=== PATIENT | male | born 1990 | race Caucasian/White ===

== ENCOUNTER 2020-03-17 11:58 | Emergency (ER) | payer MEDICAID, SELFPAY ==
--- NOTE | 2020-03-17 12:00 | RAD_ITS ---
STUDY: X-RAY CHEST REASON FOR EXAM: Male, 29 years old. ETT PLACEMENT TECHNIQUE: Single AP portable view of the chest. COMPARISON: None. FINDINGS: The tip of the endotracheal tube is at the level of the neva. It should be pulled back 2.5 cm. EKG electrodes are seen. The lungs are clear and expanded. There is no demonstrated pleural abnormality. Normal size heart. Normal mediastinum and lilliana. Normal visualized pulmonary arteries. Normal visualized aortic arch and descending thoracic aorta. Normal visualized thoracic spine. Normal visualized ribs, clavicles, and shoulders. There is no demonstrated abnormality of the visualized soft tissue structures of the upper abdomen. RAD/Chest 1 View (Portable) IMPRESSION: The tip of the endotracheal tube is at the level of the neva. It should be pulled back 2.5 cm. Electronically Signed: Rahat Van, at 12:28 EST , Service support ,
--- NOTE | 2020-03-17 12:00 | CPS ---
Patient on transport vent. Tube placement verified by Dr Hill. Tube retaped at 26 with bilateral breath sounds.
[2020-03-17 12:01] VITALS: BP 131/90; PULSE 82; RESP 12; TEMP 36.7; O2SAT 100; BMI 27.3
--- NOTE | 2020-03-17 12:07 | ED.VIS.GEN ---
History of Present Illness Chief Complaint: Other, Pain/Inj Detail of Chief Complaint: airway issue Informant: Patient Narrative: This patient was being transferred from [place] to [facility] ICU due to being intubated after an overdose/polysubstance abuse, and during the transfer, the patient woke up from his sedation, was agitated, the squad gave him 5 mg of Ativan in addition to the propofol drip he was already on to get him sedated, but before it took effect he pulled out his ETT, disconnecting it, and they were concerned that they might have lost the airway so they stopped here for evaluation. Apparently the patient was seen overnight at outside hospital, and very agitated, given medications to sedate him, and then the physician who saw him this morning states that he was obtunded but when they tried to evaluate him further he would be very agitated intermittently, and unable to study further including CT scan which ended up being negative. He has methamphetamine on board in addition to taking a lot of Seroquel. At this time, the patient is obtunded and under the influence of sedatives, limiting history from him. Past Medical History Past Medical History: - - Unknown Smoking Status: Unknown if ever smoked Review of Systems ROS: Unable to Obtain Physical Exam Vital Signs/Narrative: Vital Signs Temp Pulse Resp BP Pulse Ox 03/17/20 12:01 98.1 F 82 12 131/90 H 100 General: Well nourished, Well developed, Unkempt, No Acute Distress, - - Obtunded/sedated Head: Normocephalic, Atraumatic ENT: Moist mucous membranes, No rhinorrhea Neck: Supple, - - No meningismus Cardiovascular: Regular rate, Regular rhythm, No murmurs. Negative for: Tachycardia Respiratory: No distress, CTA bilaterally - With equal breath sounds present bilaterally, trachea midline., Chest nontender, - - ETT present at 27 cm at the teeth, good fogging in the tube with a small amount of thick mucousy secretions and part of it Abdomen: Soft, Nondistended Skin: Normal color, No rash, No Trauma Neurological: - - Obtunded/sedated, all 4 extremities flaccid Diagnostic/Tx/Re-eval Chest X-Ray - ED: 1 View, Read by ED Physician, - - ETT in good placement, tip near neva - Rhythm Strip Rhythm Strip: Sinus Rhythm Rate: 65 Ectopy: None - Medical Decision Making There is good fogging of the tube, equal breath sounds bilaterally, nothing over the epigastrium with the ventilator breathing for him, and chest x-ray shows good ETT placement although it is a little distal. I had respiratory suction his airway tube, pull the ETT back 1 cm, and resecure it. His vital signs remained normal with pulse ox 100%, I discussed with the crnp Dr. Chandler at [facility] to give them an update, I also discussed with the physician at the [facility], I provided EMS with more benzodiazepine doses in case they needed, they have enough propofol and are able to go up on the dose if needed, and they will continue transfer to [facility]. Airway is stable. ED Disposition - Plan for ED Patient: Disposition: [facility] Diagnosis: Endotracheally intubated, Polysubstance abuse
[2020-03-17] MEDS: LORazepam 2 MG/ML Syringe 5 MG IV (12:25)
== END 2020-03-17 12:52 | disposition short-term general hospital (02) ==
LOC: ED 12:30
PROVIDERS: Emergency Provider Emergency Medicine
DX: F19.10 Other psychoactive substance abuse, uncomplicated (principal)
CPT/HCPCS: 31500; 71045; 94770; 96374; 99251; 99285; G0463

== ENCOUNTER 2021-01-21 12:47 | Emergency (ER) | payer MEDICAID, SELFPAY ==
[2021-01-21 12:47] VITALS: BP 136/86; PULSE 123; RESP 18; TEMP 36.2; O2SAT 98; BMI 24.3
[2021-01-21 15:22] VITALS: BP 142/76; PULSE 119; RESP 22; O2SAT 97
--- NOTE | 2021-01-21 15:24 | EX.ED.VISEXT ---
HPI History of Present Illness Chief Complaint: Bite Narrative Narrative: 30-year-old male presenting with right ankle erythema and slight swelling. He states this is been present for 3 days. He states it started over the medial malleolus. He denies any trauma. Patient has concern that he was bitten by a brown recluse spider. He did not see a spider or recall a bite. He was told this by friends. He denies history of systemic systems. Denies history of MRSA or abscess. Patient does state that he is in a hurry because he has to check into long-term. ROS ROS ED Constitutional Constitutional ED: Denies chills or fever(s) Eyes Eyes: Denies blurry vision or change in vision ENT ENT ED: Denies rhinorrhea or sore throat Cardiovascular Cardiovascular: Denies chest pain or palpitations Respiratory/Chest Respiratory/Chest: Denies cough or dyspnea Gastrointestinal Gastrointestinal: Denies abdominal pain, nausea or vomiting Genitourinary Genitourinary ED: Denies dysuria or hematuria Musculoskeletal Musculoskeletal: Denies back pain or neck pain Integumentary Reports rash Neurologic Neurologic: Denies headache(s) or paresthesias PFSH PFSH Medical History Anxiety Depression Hx of drug overdose Home Medications quetiapine 100 mg tablet 100 mg PO tab 06/02/20 [History Last Taken Unknown] risperidone 0.5 mg tablet 0.5 mg PO tab 06/02/20 [History Last Taken Unknown] cephalexin 500 mg PO Q6 #40 capsule 01/21/21 [Rx Last Taken Unknown] Allergy/AdvReac Type Severity Reaction Status Date / Time No Known Allergies Allergy Verified 01/21/21 12:47 Social History Smoking Status: Unknown if ever smoked alcohol intake: current EXAM Physical Exam Const Vital Signs: 01/21/21 12:47 01/21/21 15:22 Temperature 97.2 F L Temperature Source Temporal Pulse Rate 123 H 119 H Respiratory Rate 18 22 H Blood Pressure 136/86 H 142/76 H Blood Pressure Mean 102 98 Pulse Ox 98 97 Oxygen Delivery Method Room Air Room Air Positive well nourished General Appearance ED: NAD HEENT Reports moist mucous membranes normocephalic and atraumatic Cardio regular rhythm Rate: tachycardic Extremity Extremity Narrative: Erythema greater on the medial malleolus of the right foot which spreads laterally over the dorsum of the foot. Slight increased warmth. No drainage or abscess. No pain with short arc range of motion. There does appear to be a superficial abrasion over the medial malleolus. This is likely where it started. It is not consistent with a spider bite necessarily. It does not look like a recluse bite and there is no necrosis. Psych Mood & Affect: anxious Skin Skin Narrative: As described above MDM MDM MDM Narrative Medical decision making narrative: Patient presenting with cellulitis of the right ankle. This does not appear to be abscess. Patient has no pain with trunk range of motion and I have no concern for a joint infection. Patient himself says he is ambulatory. He has not had any systemic signs or symptoms. Patient denies any history of MRSA or abscess. I will start him on Keflex 4 times daily. He is given the first dose in the ER. He is given follow-up with a PCP. Patient states that he is going to check into long-term. He is counseled on wound care and monitoring for signs of worsening infection. Of note the patient is slightly tachycardic however he does feel anxious about going to long-term. He is not having any respiratory or cardiac symptoms. Impression: 1. Right foot cellulitis Discharge Plan Triage Chief Complaint: Bite ED Provider: Jus Melton Dx/Rx/DC Orders Instructions: ED Cellulitis Prescriptions: New cephalexin 500 mg capsule 500 mg PO Q6 Qty: 40 RF: 0 No Action quetiapine 100 mg tablet 100 mg PO RF: 0 risperidone 0.5 mg tablet 0.5 mg PO RF: 0 Primary Care Provider: Care Physician,No Primary Referrals: Araceli Rosales MD [STAFF PHYSICIAN] - 3-5 Days Care Physician,No Primary [Primary Care Provider] - Disposition Disposition: Home, Self Care
[2021-01-21] MEDS: Cephalexin 250 MG Capsule 500 MG PO (15:27)
--- NOTE | 2021-01-21 15:28 | ED.RN ---
PER DR SHAH, HE IS NOT CALLING THE SHELTER, PT CAN GIVE THE SHELTER HIS D/C PAPERS.
== END 2021-01-21 15:35 | disposition home or self-care (01) ==
LOC: ED 15:34
PROVIDERS: Emergency Provider Student in an Organized Health Care Education/Training Program
DX: L03.115 Cellulitis of right lower limb (principal)
CPT/HCPCS: 99283

== ENCOUNTER 2021-09-14 20:10 | Emergency (ER) | payer MEDICAID, SELFPAY ==
[2021-09-14 20:11] VITALS: BP 142/84; PULSE 92; RESP 15; TEMP 36.7; O2SAT 97; BMI 22.8
[2021-09-14 20:12] VITALS: BP 142/84; PULSE 92; RESP 15; TEMP 36.7; O2SAT 97
--- NOTE | 2021-09-14 20:24 | ED.VIS.DENTA ---
HPI History of Present Illness Chief Complaint: Dental Informant: patient Onset/Context/Timing Onset: Days Context: Gradual Onset Current Severity: Mild Maximum Severity: Moderate Narrative Narrative: Patient presents secondary to right upper dental pain. He states that he woke from sleep 1 night last week and part of his tooth had broken off. He states it has been broken previously. He has had increased pain to this area. He has a dentist appointment next week. [facility] Medical History Anxiety Depression Hx of drug overdose Home Medications quetiapine 100 mg tablet 100 mg PO QHS tab 06/02/20 [History Last Taken Unknown] risperidone 0.5 mg tablet 0.5 mg PO TID tab 06/02/20 [History Last Taken Unknown] gabapentin 300 mg PO DAILY 09/14/21 [History Last Taken Unknown] naproxen [Naprosyn] 500 mg PO BID PRN #20 tab 09/14/21 [Rx Last Taken Unknown] penicillin V potassium 500 mg PO 4X/DAY #40 tab 09/14/21 [Rx Last Taken Unknown] Allergy/AdvReac Type Severity Reaction Status Date / Time No Known Allergies Allergy Verified 09/14/21 20:13 Social History Smoking Status: Current every day smoker tobacco type: cigarettes alcohol intake: current ROS ROS ED Constitutional Constitutional ED: Denies chills or fever(s) Eyes Eyes: Denies change in vision ENT ENT ED: Reports other Details: Right-sided dental pain ; Denies sore throat Cardiovascular Cardiovascular: Denies chest pain Respiratory/Chest Respiratory/Chest: Denies cough or dyspnea Gastrointestinal Gastrointestinal: Denies abdominal pain, nausea or vomiting Genitourinary Genitourinary ED: Denies dysuria Musculoskeletal Musculoskeletal: Denies back pain or neck pain Integumentary Denies rash Neurologic Neurologic: Denies headache(s) or weakness Allergic/Immunologic Allergic/Immunologic ED: Denies urticaria EXAM Physical Exam Const Vital Signs: 09/14/21 20:11 09/14/21 20:12 Temperature 98.0 F 98.0 F Temperature Source Temporal Temporal Pulse Rate 92 92 Respiratory Rate 15 15 Blood Pressure 142/84 H 142/84 H Blood Pressure Mean 103 103 Pulse Ox 97 97 Oxygen Delivery Method Room Air Room Air Positive well nourished and well developed General Appearance ED: well developed HEENT HEENT Narrative: No facial edema or erythema. Right maxillary third molar is fractured on the posterior surface. Right maxillary first molar is tender to palpation. Minimal surrounding gum edema. Posterior pharynx exam is normal. No trismus. Eyes PERRL and EOMs intact bilaterally Neck no lymphadenopathy and supple Lymph Lymphatic: no lymphadenopathy noted Chest Wall inspection of chest normal Resp normal respiratory effort and clear to auscultation bilaterally Cardio regular rate and regular rhythm GI non-tender Palpation: soft Extremity normal to inspection Neuro oriented x3 Sensorium / Orientation: alert Psych mental status grossly normal Skin no rashes or lesions noted [facility] Treatment and Re-Evaluation Narrative: Patient be treated with a course of Naprosyn and Pen-Vee K. First dose will be given here and prescription sent to [facility] [place]. He is to follow-up with his dentist next week as scheduled. Discharge Plan Triage Chief Complaint: Dental ED Provider: Deb Atkinson Dx/Rx/DC Orders Clinical Impression: Odontalgia Instructions: ED Dental Pain Prescriptions: New naproxen [Naprosyn] 500 mg tablet 500 mg PO BID PRN (Reason: pain) Qty: 20 RF: 0 penicillin V potassium 500 mg tablet 500 mg PO 4X/DAY Qty: 40 RF: 0 No Action quetiapine 100 mg tablet 100 mg PO QHS RF: 0 risperidone 0.5 mg tablet 0.5 mg PO TID RF: 0 gabapentin 300 mg capsule 300 mg PO DAILY RF: 0 Primary Care Provider: Care Physician,No Primary Referrals: Care Physician,No Primary [Primary Care Provider] - Activity Restrictions/Additional Instructions: Follow-up with your dentist next week as scheduled. Disposition Disposition: Home, Self Care
[2021-09-14] MEDS: Naproxen 500 MG Tablet PO (20:32)
[2021-09-14] MEDS: Penicillin Vk 250 MG Tablet 500 MG PO (20:32)
[2021-09-14 20:34] VITALS: PULSE 71; RESP 16; O2SAT 99
== END 2021-09-14 20:34 | disposition home or self-care (01) ==
LOC: ED 20:28
PROVIDERS: Emergency Provider Emergency Medicine; Visit Provider Emergency Medicine
DX: K08.89 Other specified disorders of teeth and supporting structures (principal); F32.A Depression, unspecified; F41.9 Anxiety disorder, unspecified; F17.210 Nicotine dependence, cigarettes, uncomplicated; Z79.899 Other long term (current) drug therapy
CPT/HCPCS: 99283

== ENCOUNTER 2021-09-26 00:25 | Emergency (ER) | payer MEDICAID, SELFPAY ==
[2021-09-26 00:27] VITALS: BP 143/110; PULSE 65; RESP 16; TEMP 36.2; O2SAT 100; BMI 25.1
--- NOTE | 2021-09-26 01:02 | EDS_ITS ---
HPI HPI - GI History of Present Illness Chief Complaint: Abd Pain Informant: patient Narrative Narrative: Patient is a 31-year-old male who denies any past medical history but does admit to daily marijuana use presenting with epigastric and left upper quadrant abdominal pain. He states has been going on for the past day and a half. He has associated nausea and dry heaves no vomiting. He is been having normal bowel movements. States it feels like he was punched in the gut. Pain does not radiate. Is never had anything like this before. Has been having some chills but thinks it is because his apartment is cold. Denies any fever. Denies any urinary symptoms. Denies any new foods or sick contacts. States he tried to eat thinking maybe he was just really hungry however that did not help his symptoms. It did not make him worse either. Denies any aggravating factors. Took some Pepto-Bismol which he states did help it slightly. Denies any history of any surgeries. No other complaints at this time. PFSH PFS Medical History Anxiety Depression Hx of drug overdose Home Medications omeprazole 20 mg capsule,delayed release 20 mg PO DAILY #30 caps 09/26/21 [Rx Last Taken Unknown] ondansetron 4 mg disintegrating tablet 4 mg PO Q6H PRN nausea and vomiting #14 tabs 09/26/21 [Rx Last Taken Unknown] Allergy/AdvReac Type Severity Reaction Status Date / Time No Known Allergies Allergy Verified 09/26/21 00:26 Social History Smoking Status: Current every day smoker tobacco type: cigarettes alcohol intake: current ROS ROS ED Constitutional Constitutional ED: Reports chills; Denies fever(s) ENT ENT ED: Denies rhinorrhea or sore throat Cardiovascular Cardiovascular: Denies chest pain Respiratory/Chest Respiratory/Chest: Denies cough Gastrointestinal Gastrointestinal: Reports abdominal pain and nausea; Denies constipation, diarrhea or vomiting Genitourinary Genitourinary ED: Denies dysuria, hematuria or urinary frequency Musculoskeletal Musculoskeletal: Denies back pain or myalgias Integumentary Denies rash Neurologic Neurologic: Denies headache(s) or weakness Psychiatric Psychiatric: Denies anxiety EXAM Physical Exam Const Vital Signs: 09/26/21 00:27 Temperature 97.2 F L Temperature Source Oral Pulse Rate 65 Respiratory Rate 16 Blood Pressure 143/110 H Blood Pressure Mean 121 Pulse Ox 100 Oxygen Delivery Method Room Air Positive well nourished, well developed and unkempt General Appearance ED: unkempt, well developed and NAD HEENT Reports moist mucous membranes normocephalic and atraumatic Eyes PERRL and EOMs intact bilaterally Neck supple and no JVD Resp normal respiratory effort and clear to auscultation bilaterally Cardio regular rate, regular rhythm and no murmurs GI non-distended and no masses GI Narrative: Mild tenderness palpation of the left upper quadrant. Negative Dunn sign. Auscultation: normoactive bowel sounds Back/Spine no CVA tenderness Neuro moves all extremities Motor Exam: Negative for general weakness Psych mental status grossly normal and thought process normal Appearance: unkempt MDM MDM MDM Narrative Medical decision making narrative: Patient is evaluated for 1/2 days of epigastric abdominal pain and left upper quadrant abdominal pain. Has associated nausea with dry heaves. Admits to regular marijuana use but denies any alcohol use. Abdominal exam pretty benign. He does have some discomfort in the left upper quadrant/epigastric region. Negative Dunn sign. Work-up is remarkable for an elevated lipase of 1258. Normal liver enzymes and normal CBC. Patient is given IV fluids, Toradol and IV Zofran. CT shows abnormal findings of the stomach with a differential including gastritis/peptic ulcer disease or neoplastic infiltration. Repeat evaluation he is feeling better. He is able to take p.o. challenge. Case is discussed with GI who states that sometimes inflammation of the stomach can cause an elevated lipase given that he does have a normal pancreas on imaging. He is agreeable with outpatient follow-up. Patient counseled that he does have abnormalities on his imaging and there is a possibility that he could have cancer and he needs to follow-up with GI. He will be started on a daily PPI. Patient is counseled on return precautions. He is agreeable with outpatient follow-up. Lab Data Attestation: I reviewed the patient's lab results. Labs: Laboratory Results - last 24 hr 09/26/21 09/26/21 09/26/21 00:54 00:54 01:10 WBC 9.8 RBC 4.74 Hgb 14.9 Hct 45.3 MCV 95.6 H MCH 31.4 MCHC 32.9 RDW Std Deviation 43.8 RDW Coeff of Graciela 12.4 Plt Count 250 MPV 9.6 Immature Gran % (Auto) 0.200 Neut % (Auto) 56.0 Lymph % (Auto) 32.4 [place] % (Auto) 7.0 Eos % (Auto) 3.6 Baso % (Auto) 0.8 Absolute Neuts (auto) 5.5 Absolute Lymphs (auto) 3.17 Nucleated RBC % 0 Sodium 140 Potassium 3.6 Chloride 108 H Carbon Dioxide 28.0 Anion Gap 4 L BUN 13 Creatinine 1.02 Estim Creat Clear Calc 104.93 Est GFR (MDRD) Af Amer 109 Est GFR (MDRD) Non-Af 90 BUN/Creatinine Ratio 12.7 Glucose 88 Calcium 9.1 Total Bilirubin 0.30 AST 16 ALT 20 Alkaline Phosphatase 72 Total Protein 7.4 Albumin 3.8 Globulin 3.6 Albumin/Globulin Ratio 1.1 Lipase 1258 H Urine Color Yellow Urine Clarity Clear Urine pH 6.5 Ur Specific Sullivan 1.015 Urine Protein Negative Urine Glucose (UA) Normal Urine Ketones Negative Urine Occult Blood Negative Urine Nitrite Negative Urine Bilirubin Negative Urine Urobilinogen Normal Ur Leukocyte Esterase Negative Urine RBC 0 SEEN Urine WBC 0-5 SEEN Ur Squamous Epith Cells 0 SEEN Urine Bacteria 1+ Urine Mucus 0 SEEN Radiography Diagnostic Testing: Clinical Impression(s) from Imaging Studies Abdomen/Pelvis CT 09/26/21 01:59 IMPRESSION: 1. Abnormal findings in the distal body and antrum the stomach, including mural thickening as well as focal disruption of the mucosa. Findings may represent gastritis/peptic ulcer disease or neoplastic infiltration. Suggest upper endoscopy for further evaluation. 2. Small areas of cortical scarring in both kidneys. Small nonobstructive right renal calculus. No demonstrated ureteral calculi or hydronephrosis. 3. No visible radiographic evidence for pancreatitis. Electronically Signed: Eyal Rincon MD at 2:58 EDT , Discharge Plan Triage Chief Complaint: Abd Pain ED Provider: Shaniqua Kirkland Dx/Rx/DC Orders Clinical Impression: Nausea, Abdominal pain, acute, epigastric, Abnormal CT of the abdomen, Elevated lipase Instructions: ED PEPTIC ULCER vs GASTRITIS Prescriptions: New omeprazole 20 mg capsule,delayed release(DR/EC) 20 mg PO DAILY Qty: 30 0RF ondansetron 4 mg tablet,disintegrating 4 mg PO Q6H PRN (Reason: nausea and vomiting) Qty: 14 0RF Primary Care Provider: Care Physician,No Primary Referrals: Friend,Levar, DO [STAFF PHYSICIAN] - As soon as possible Care Physician,No Primary [Primary Care Provider] - Activity Restrictions/Additional Instructions: Your lipase is elevated today. Your pancreas looked normal on imaging. There is a lot of inflammation and thickening of your stomach which could be consistent with an ulcer however cancer can cause this. You need to follow-up with GI for further evaluation of this. Disposition Disposition: Home, Self Care
[2021-09-26] MEDS: Ondansetron 4 MG/2 ML Vial IV (01:09)
[2021-09-26] MEDS: 0.9% Normal Saline 1,000 ML 1000 ML IV (01:09)
[2021-09-26] MEDS: Ketorolac 15 MG/ML Vial IV (01:09)
[2021-09-26 01:11] LABS: Absolute Lymphocyte Count 3.17 X10^3/uL (0.83-4.51); Absolute Neutrophil Count 5.5 X10^3/uL (2.0-7.7); Basophil# 0.08 X10^3/uL; Basophil% 0.8 % (0-1); Eosinophil# 0.35 X10^3/uL; Eosinophils% 3.6 % (0-5); Hematocrit 45.3 % (40-54); Hemoglobin 14.9 g/dL (13.0-16.5); Lymphocyte # 3.17 X10^3/ul (0.83-4.51); Lymphocyte % 32.4 % (19-41); Mean Corp Hgb Conc 32.9 g/dL (32-36); Mean Corpuscular Hgb 31.4 pg (27.0-32.0); Mean Corpuscular Volume 95.6 fL (80-94); Mean Platelet Vol. 9.6 fl (6.2-12.0); Monocyte# 0.68 X10^3/uL; NRBC Flagged by Analyzer 0 % (0-5); Neutrophil # 5.48 X10^3/uL (2.7-7.7); Platelet Count 250 K/mm3 (150-450); RBC Distribution Width CV 12.4 % (11.6-14.6); RBC Distribution Width SD 43.8 fl (35.1-43.9); Red Blood Count 4.74 M/mm3 (4.6-6.2); White Blood Count 9.8 K/mm3 (4.4-11.0)
[2021-09-26 01:12] LABS: Mucous, Urine 0 SEEN /hpf (<or=2+); Red Blood Cells-Urine 0 SEEN /hpf (0-5); Squamous Epithelial Cells - UA 0 SEEN /hpf (0-5)
[2021-09-26 01:18] LABS: Color, Urine Yellow (Yellow); Glucose, Dipstick Normal (Normal); Ketone-Dipstick Negative (Negative); Leukocyte Esterase-Dipstick Negative /ul (Negative); Nitrite-Dipstick Negative (Negative); Occult Blood-Urine Negative /ul (Negative); Protein-Dipstick Negative (Negative); Specific Gravity, Urine 1.015 (1.002-1.030); Urine Bilirubin Dipstick Negative (Negative); Urine Clarity Clear (Clear); Urine Urobilinogen Normal (Normal); Urine pH 6.5 (5.0 - 8.0)
[2021-09-26 01:24] LABS: Bacteria 1+ /hpf (None Seen); White Blood Cells 0-5 SEEN /hpf (0-5)
[2021-09-26 01:30] LABS: ALB/GLOB Ratio 1.1 RATIO (0.9-2.4); AST(SGOT) 16 U/L (15-37); Alanine Aminotransfer ALT/SGPT 20 U/L (16-61); Albumin, Serum 3.8 g/dL (3.2-5.0); Alkaline Phosphatase 72 U/L (45-117); Anion Gap 4 (5-15); BUN 13 mg/dL (7-18); BUN/Creat Ratio 12.7 RATIO (10-20); Calcium,Total 9.1 mg/dL (8.5-10.1); Chloride 108 mmol/L (98-107); Creatinine, Serum 1.02 mg/dL (0.70-1.30); EST Glomerular Filtration Rate 90 mL/min (>60); Est Glom Filt Rate - Afr Amer 109 mL/min (>60); Estimated Creatinine Clearance 104.93 ml/min; Globulin 3.6 g/dL (2.2-4.2); Glucose 88 mg/dL (74-106); Lipase 1258 U/L (73-393); Potassium 3.6 mmol/L (3.5-5.1); Protein, Total 7.4 g/dL (6.4-8.2); Sodium Level 140 mmol/L (136-145)
--- NOTE | 2021-09-26 01:59 | CT_ITS ---
EXAM: CT ABDOMEN AND PELVIS WITH INTRAVENOUS CONTRAST CLINICAL INDICATION: acute pancreatitis acute pancreatitis TECHNIQUE: Helically acquired images were obtained of the abdomen and pelvis with intravenous contrast. This CT exam was performed using one or more of the following dose reduction techniques: automated exposure control, adjustment of the mA and/or kV according to patient size, and/or use of iterative reconstruction technique. This report was created using [employer] report generation technology. CONTRAST: IV 100mL Isovue-370. Oral contrast was administered. RADIATION DOSE: CTDIvol = 11.4 mGy, DLP = 476.08 mGy-cm COMPARISON: None. FINDINGS: LOWER THORAX: Unremarkable. Lung bases are clear. No cardiomegaly. No significant pericardial effusion. ABDOMEN: LIVER: Unremarkable. Homogeneous. No focal mass. GALLBLADDER AND BILE DUCTS: Unremarkable. No calcified gallstones. No gallbladder distention or wall edema. No intra- or extrahepatic biliary ductal dilation. PANCREAS: Unremarkable. No focal cystic or solid mass. SPLEEN: Unremarkable. Normal size without focal cystic or solid mass. ADRENALS: Unremarkable. No nodules. KIDNEYS AND URETERS: There are small foci of cortical scarring in both kidneys. There is a 3.5 mm nonobstructive right lower pole renal calculus. STOMACH AND BOWEL: There is apparent mural thickening of the distal body and antrum of the stomach, which may represent gastritis or neoplastic infiltration. As seen on sagittal images 70-72 and coronal images 27-29, there is apparent disruption of the mucosal layer of the superior aspect of the gastric antrum. No stomach or bowel distention. PELVIS: APPENDIX: The appendix is seen posterior to the cecum on axial images 64-81. There is no evidence for acute appendicitis. BLADDER: Unremarkable. REPRODUCTIVE: Unremarkable as visualized. No mass. ABDOMEN and PELVIS: INTRAPERITONEAL SPACE: Unremarkable. No ascites or other fluid collection. No free air. BONES/JOINTS: There are small broad posterior disc protrusions at the L4-5 and L5-S1 levels. No suspicious lytic or blastic abnormality. SOFT TISSUES: Unremarkable. No discrete abdominal or pelvic wall hernia. VASCULATURE: Unremarkable. Abdominal aorta is non-dilated. LYMPH NODES: Unremarkable. No enlarged lymph nodes. CT/Abdomen/Pelvis W IV Cont ONLY IMPRESSION: 1. Abnormal findings in the distal body and antrum the stomach, including mural thickening as well as focal disruption of the mucosa. Findings may represent gastritis/peptic ulcer disease or neoplastic infiltration. Suggest upper endoscopy for further evaluation. 2. Small areas of cortical scarring in both kidneys. Small nonobstructive right renal calculus. No demonstrated ureteral calculi or hydronephrosis. 3. No visible radiographic evidence for pancreatitis. Electronically Signed: Eyal Rincon MD at 2:58 EDT Reading Location ID and State: [facility] / [place] , Service support ,
[2021-09-26 05:52] VITALS: BP 132/89; PULSE 71; RESP 16; O2SAT 99
== END 2021-09-26 05:52 | disposition home or self-care (01) ==
PROVIDERS: Emergency Provider Emergency Medicine; Visit Provider Emergency Medicine
DX: R11.2 Nausea with vomiting, unspecified (principal); F12.90 Cannabis use, unspecified, uncomplicated; R74.8 Abnormal levels of other serum enzymes; R10.9 Unspecified abdominal pain; F17.210 Nicotine dependence, cigarettes, uncomplicated; R93.5 Abnormal findings on diagnostic imaging of other abdominal regions, including retroperitoneum
CPT/HCPCS: 74177; 80053; 81001; 83690; 85025; 96361; 96374; 96375; 99283; J7030; Q9967; A4216; J2405

== ENCOUNTER 2022-03-27 21:15 | Emergency (ER) | payer MEDICAID, SELFPAY ==
[2022-03-27 21:16] VITALS: BP 147/110; PULSE 117; RESP 18; TEMP 37.4; O2SAT 99; BMI 23.6
--- NOTE | 2022-03-27 22:06 | EDS_ITS ---
HPI History of Present Illness Chief Complaint: General Illness Detail of Chief Complaint: Dental pain with body aches. Informant: patient Narrative Narrative: Patient presents primarily secondary to right upper dental pain. He states he h ad a hole in the side of his tooth and now has had increased pain. He also states today he is felt slightly feverish with some body aches. He is concerned he may have COVID. PFSH PFSH Medical History Anxiety Depression Hx of drug overdose Home Medications omeprazole 20 mg capsule,delayed release 20 mg PO DAILY #30 caps 09/26/21 [Rx Last Taken Unknown] ondansetron 4 mg disintegrating tablet 4 mg PO Q6H PRN nausea and vomiting #14 tabs 09/26/21 [Rx Last Taken Unknown] Allergy/AdvReac Type Severity Reaction Status Date / Time No Known Allergies Allergy Verified 09/26/21 00:26 Social History Smoking Status: Current every day smoker tobacco type: cigarettes alcohol intake: current ROS ROS ED Constitutional Constitutional ED: Reports fever(s) and subjective; Denies chills Eyes Eyes: Denies change in vision or discharge from eye(s) ENT ENT ED: Reports other Details: Dental pain ; Denies discharge from eye(s), rhinorrhea or sore throat Cardiovascular Cardiovascular: Denies chest pain or palpitations Respiratory/Chest Respiratory/Chest: Reports cough; Denies dyspnea Gastrointestinal Gastrointestinal: Denies abdominal pain, diarrhea, nausea or vomiting Genitourinary Genitourinary ED: Denies dysuria Musculoskeletal Musculoskeletal: Reports myalgias; Denies back pain or extremity pain Integumentary Denies Abrasions or rash Neurologic Neurologic: Reports headache(s); Denies weakness Allergic/Immunologic Allergic/Immunologic ED: Denies lip swelling or urticaria EXAM Physical Exam Const Vital Signs: 03/27/22 21:16 Temperature 99.3 F H Temperature Source Temporal Pulse Rate 117 H Respiratory Rate 18 Blood Pressure 147/110 H Blood Pressure Mean 122 Pulse Ox 99 Oxygen Delivery Method Room Air Positive well nourished and well developed General Appearance ED: well developed HEENT Reports normocephalic and head/scalp atraumatic HEENT Narrative: Right maxillary third molar is fractured on the lateral side. Mild surrounding gum edema. Posterior pharynx exam is normal. Patient tolerating secretions well and has a strong voice. No evidence of Jorge Alberto's angina. Eyes PERRL and EOMs intact bilaterally Neck supple Chest Wall inspection of chest normal and palpation of chest normal Resp normal respiratory effort and clear to auscultation bilaterally Cardio regular rate and regular rhythm GI normal to inspection, nondistended, normoactive bowel sounds Palpation: soft Extremity normal to inspection Neuro oriented x3 and no sensory deficits noted Sensorium / Orientation: alert Motor Exam: strength 5/5 throughout Psych mental status grossly normal Skin no rashes or lesions noted MDM MDM MDM Narrative Medical decision making narrative: Patient be treated with Pen-Vee K and anti-inflammatories for his dental pain. We discussed swabbing him for COVID and influenza. He would like to be swabbed but is comfortable with discharge to home and will call back in to get his results. I did advise him that it is all supportive care if he does test positive for these. Discharge Plan Triage Chief Complaint: General Illness ED Provider: Deb Atkinson Dx/Rx/DC Orders Clinical Impression: Odontalgia, Viral syndrome Instructions: ED Dental Pain, ED Viral Syndrome (Adult) Prescriptions: No Action omeprazole 20 mg capsule,delayed release(DR/EC) 20 mg PO DAILY Qty: 30 0RF ondansetron 4 mg tablet,disintegrating 4 mg PO Q6H PRN (Reason: nausea and vomiting) Qty: 14 0RF Primary Care Provider: Care Physician,No Primary Referrals: Care Physician,No Primary [Primary Care Provider] - Activity Restrictions/Additional Instructions: Dental list provided. Disposition Disposition: Home, Self Care
[2022-03-27 22:11] VITALS: RESP 18
[2022-03-27] MEDS: Naproxen 500 MG Tablet PO (22:14)
[2022-03-27] MEDS: Penicillin Vk 250 MG Tablet 500 MG PO (22:14)
== END 2022-03-27 22:18 | disposition home or self-care (01) ==
LOC: ED 22:12
PROVIDERS: Emergency Provider Emergency Medicine; Visit Provider Emergency Medicine
DX: B34.9 Viral infection, unspecified (principal); K08.89 Other specified disorders of teeth and supporting structures; F17.210 Nicotine dependence, cigarettes, uncomplicated
CPT/HCPCS: 87428; 99283

== ENCOUNTER 2022-07-31 16:51 | Emergency (ER) | payer MEDICAID, SELFPAY ==
[2022-07-31 16:52] VITALS: BP 151/104; PULSE 116; RESP 20; TEMP 35.2; O2SAT 97; BMI 24.2
== END 2022-07-31 17:14 | disposition left against medical advice (07) ==
LOC: ED 17:16
DX: Z53.21 Procedure and treatment not carried out due to patient leaving prior to being seen by health care provider (principal)

== ENCOUNTER 2022-10-14 13:57 | Emergency (ER) | payer MEDICAID, SELFPAY ==
[2022-10-14 13:58] VITALS: BP 144/92; PULSE 76; RESP 14; TEMP 36.6; O2SAT 98; BMI 22.9
--- NOTE | 2022-10-14 14:15 | EX.ED.DYSGE1 ---
HPI History of Present Illness Chief Complaint: Abd Pain Informant: patient Narrative Narrative: Patient states for the past 2 days he has had a right upper quadrant/flank pain that feels like a muscle cramp that you get after running after eating. He states there is no reason for him to have this recently has not been doing anything exertional or exercising. He denies pain with moving, denies any nausea or vomiting, it is not colicky, does not radiate into his back or shoulder, denies any pleuritic discomfort dyspnea cough palpitations or syncope. No leg pain or swelling. No history of DVT or PE. No surgeries in the past. No recent travel or hospitalization or other illness. [facility] Medical History Anxiety Depression Hx of drug overdose Home Medications omeprazole 20 mg capsule,delayed release 20 mg PO DAILY #30 caps 09/26/21 [Rx Last Taken Unknown] ondansetron 4 mg disintegrating tablet 4 mg PO Q6H PRN nausea and vomiting #14 tabs 09/26/21 [Rx Last Taken Unknown] naproxen 500 mg tablet (Naprosyn) 500 mg PO BID PRN pain #20 tabs 03/27/22 [Rx Last Taken Unknown] penicillin V potassium 500 mg tablet 500 mg PO 4X/DAY #40 tabs 03/27/22 [Rx Last Taken Unknown] Allergy/AdvReac Type Severity Reaction Status Date / Time No Known Allergies Allergy Verified 07/31/22 16:54 Social History Smoking Status: Current every day smoker tobacco type: cigarettes alcohol intake: current ROS ROS ED Constitutional Constitutional ED: Denies chills or fever(s) Eyes Eyes: Denies change in vision or diplopia ENT ENT ED: Denies rhinorrhea or sore throat Cardiovascular Cardiovascular: Denies chest pain or palpitations Respiratory/Chest Respiratory/Chest: Denies cough or dyspnea Gastrointestinal Gastrointestinal: Reports abdominal pain; Denies diarrhea, nausea or vomiting Genitourinary Genitourinary ED: Denies dysuria or hematuria Musculoskeletal Musculoskeletal: Denies back pain or neck pain Integumentary Denies abscess or rash Neurologic Neurologic: Denies headache(s), paresthesias or weakness Psychiatric Psychiatric: Denies anxiety or suicidal thoughts EXAM Physical Exam Const Vital Signs: 10/14/22 13:58 Temperature 97.8 F Temperature Source Temporal Pulse Rate 76 Respiratory Rate 14 Blood Pressure 144/92 H Blood Pressure Mean 109 Pulse Ox 98 Oxygen Delivery Method Room Air Positive well nourished and well developed General Appearance ED: well developed and NAD HEENT Reports moist mucous membranes normocephalic and atraumatic Eyes PERRL and EOMs intact bilaterally Neck full ROM and supple Resp normal respiratory effort and clear to auscultation bilaterally Cardio regular rate, regular rhythm and no murmurs Rate: Negative for tachycardic GI non-distended GI Narrative: Very mild tenderness lateral aspect of the right upper quadrant underneath the ribs with deep palpation. No palpable hepatosplenomegaly. No guarding or rebound tenderness. No epigastric tenderness. Auscultation: normoactive bowel sounds Palpation: soft Back/Spine no CVA tenderness General Back: other FROM Extremity normal to inspection General Extremety ED: Negative for edema, pulses abnormal or tenderness General Extremity: Negative for edema or pulses abnormal Neuro oriented x3, CN's II-XII intact bilaterally and no sensory deficits noted Sensorium / Orientation: awake and alert Motor Exam: strength 5/5 throughout Skin no rashes or lesions noted and no wounds MDM MDM MDM Narrative Medical decision making narrative: PERC score 0. Therefore he does not need further testing in order to rule out pulmonary embolus here. I suspect this is probably muscular based on how mild in the lateral the tenderness is. He is not tender on the ribs and there is no subcutaneous emphysema or rash. Ordered some basic labs including liver enzymes and lipase, 2 view chest x-ray, and told him I would return with our ED ultrasound machine to make sure that he did not have any gallstones. Patient said that sounded good and reasonable, and on reevaluation with the machine, he eloped. Discharge Plan Triage Chief Complaint: Abd Pain ED Provider: Ramana Hill Dx/Rx/DC Orders Clinical Impression: Acute right flank pain Prescriptions: No Action omeprazole 20 mg capsule,delayed release(DR/EC) 20 mg PO DAILY Qty: 30 0RF ondansetron 4 mg tablet,disintegrating 4 mg PO Q6H PRN (Reason: nausea and vomiting) Qty: 14 0RF penicillin V potassium 500 mg tablet 500 mg PO 4X/DAY Qty: 40 0RF naproxen [Naprosyn] 500 mg tablet 500 mg PO BID PRN (Reason: pain) Qty: 20 0RF Primary Care Provider: Care Physician,No Primary Referrals: Care Physician,No Primary [Primary Care Provider] - Disposition Disposition: Elopement
== END 2022-10-14 14:20 | disposition left against medical advice (07) ==
LOC: ED 14:37
PROVIDERS: Emergency Provider Emergency Medicine; Visit Provider Emergency Medicine
DX: R10.11 Right upper quadrant pain (principal); F17.210 Nicotine dependence, cigarettes, uncomplicated
CPT/HCPCS: 99282

== ENCOUNTER 2022-11-09 12:04 | Emergency (ER) | payer MEDICAID, SELFPAY ==
[2022-11-09 12:05] VITALS: BP 168/125; PULSE 85; RESP 14; TEMP 36.2; O2SAT 98; BMI 23.6
--- NOTE | 2022-11-09 12:11 | EX.ED.DYSGE1 ---
HPI History of Present Illness Chief Complaint: Rash Detail of Chief Complaint: Rash lower extremity, left Informant: patient Onset/Context/Timing Onset: Days Context: Sudden Onset Timing: Continuous Quality: Pustules with erythema Location: Medial distal left leg Current Severity: Mild Maximum Severity: Mild Worsened by: Nothing Relieved by: Nothing Associated Symptoms Associated Symptoms: No associated symptoms Narrative Narrative: Patient is a 32-year-old male who presents with rash leg. He apparently seen at [facility] and told it was fleabites. Patient denies fever, chills night sweats. Patient denies history of diabetes. Patient denies paresthesia, anesthesia or motor weakness. Prior similar symptoms: Yes Recent Illness/Hospitalization: Yes PFSH PFS Medical History Anxiety Depression Hx of drug overdose Home Medications omeprazole 20 mg capsule,delayed release 20 mg PO DAILY #30 caps 09/26/21 [Rx Last Taken Unknown] ondansetron 4 mg disintegrating tablet 4 mg PO Q6H PRN nausea and vomiting #14 tabs 09/26/21 [Rx Last Taken Unknown] naproxen 500 mg tablet (Naprosyn) 500 mg PO BID PRN pain #20 tabs 03/27/22 [Rx Last Taken Unknown] penicillin V potassium 500 mg tablet 500 mg PO 4X/DAY #40 tabs 03/27/22 [Rx Last Taken Unknown] Allergy/AdvReac Type Severity Reaction Status Date / Time No Known Allergies Allergy Verified 11/09/22 12:07 Social History Smoking Status: Current every day smoker tobacco type: cigarettes alcohol intake: current ROS ROS ED Constitutional Constitutional ED: Denies chills, fever(s), subjective, sweats or weight loss Integumentary Reports rash Neurologic Neurologic: Denies paresthesias or weakness Endocrine Endocrinology: Denies cold intolerance or heat intolerance Hematologic/Lymphatic Hematologic/Lymphatic: Reports systems reviewed and no addt'l complaints, except as documented EXAM Physical Exam Const Vital Signs: 11/09/22 12:05 Temperature 97.2 F L Temperature Source Temporal Pulse Rate 85 Respiratory Rate 14 Blood Pressure 168/125 H Blood Pressure Mean 139 Pulse Ox 98 Oxygen Delivery Method Room Air Positive well nourished and well developed General Appearance ED: well developed and NAD; Negative for cyanotic or diaphoretic HEENT Reports moist mucous membranes HEENT Narrative: Head is atraumatic normocephalic. Eyes PERRL and EOMs intact bilaterally General Eye ED: Negative for pale conjunctiva or scleral icterus Resp normal respiratory effort Cardio regular rate and regular rhythm Extremity Extremity Narrative: Patient has folliculitis distal medial left leg there is 2 areas of excoriation. There is a pustule noted in the center of the erythematous lesions that are associated with hair follicles. Neuro oriented x3 and CN's II-XII intact bilaterally Sensorium / Orientation: alert Skin Skin Narrative: Folliculitis MDM MDM MDM Narrative Medical decision making narrative: Patient presents with rash. He did not believe the diagnosis he was given at outside facility. Patient was informed he has folliculitis. He was told what he needs to do. Discharge Plan Triage Chief Complaint: Rash ED Provider: Johan Lowe Dx/Rx/DC Orders Clinical Impression: Folliculitis Instructions: ED Folliculitis Prescriptions: No Action omeprazole 20 mg capsule,delayed release(DR/EC) 20 mg PO DAILY Qty: 30 0RF ondansetron 4 mg tablet,disintegrating 4 mg PO Q6H PRN (Reason: nausea and vomiting) Qty: 14 0RF penicillin V potassium 500 mg tablet 500 mg PO 4X/DAY Qty: 40 0RF naproxen [Naprosyn] 500 mg tablet 500 mg PO BID PRN (Reason: pain) Qty: 20 0RF Primary Care Provider: Care Physician,No Primary Referrals: Care Physician,No Primary [Primary Care Provider] - Activity Restrictions/Additional Instructions: 1. Wash the area of 4-6 times a day. 2. Apply warm compresses to the area as well. 3. If no improvement in 1 week follow-up with your doctor. The name of your doctor is listed on your insurance card issued to you by [facility]. Disposition Disposition: Home, Self Care
== END 2022-11-09 12:24 | disposition home or self-care (01) ==
LOC: ED 12:23
PROVIDERS: Emergency Provider Emergency Medicine; Visit Provider Emergency Medicine
DX: L73.9 Follicular disorder, unspecified (principal); F17.210 Nicotine dependence, cigarettes, uncomplicated; F41.9 Anxiety disorder, unspecified; F32.9 Major depressive disorder, single episode, unspecified
CPT/HCPCS: 99282

== ENCOUNTER 2022-12-05 13:55 | Emergency (ER) | payer MEDICAID, SELFPAY ==
[2022-12-05 13:58] VITALS: BP 156/111; PULSE 92; RESP 18; TEMP 36.3; O2SAT 98; BMI 23.3
--- NOTE | 2022-12-05 14:27 | EX.ED.DYSGE1 ---
HPI History of Present Illness Chief Complaint: General Illness Informant: patient and spouse/S.O. Narrative Narrative: Patient presents with multiple nonspecific concerns. Patient's been having years and years of symptoms. What brought him in today is that he talk to an unknown person who stated that his symptoms are consistent with cancer so he came in for evaluation. Patient has had off-and-on epigastric pain with occasional vomiting for years. Yet he states his weight has been 159 pounds and he has not lost or gained significantly. He is able to eat and drink most of the time. He does get sour acid taste and burning in his throat on occasion. He denies ever being on any thing for acid reflux but his med list lists omeprazole. Reviewing the record it looks like that was prescribed in September 2021. He states he saw a doctor about this but he does not know who it was. 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 But they never made the appointment. Most of this detailed history comes from his significant other. I cannot get any other details from this patient. I get no indication of chest pain. He is not short of breath. He states sometimes it is hard to tell if he is coughing or vomiting. He denies being on any routine medications. He denies any prior surgeries. He denies any known medical problems. He denies any known family medical problems but states his mother does not know of any problems and he never knew his father. [facility] Medical History Anxiety Depression Hx of drug overdose Home Medications omeprazole 20 mg capsule,delayed release 20 mg PO DAILY #30 caps 09/26/21 [Rx Last Taken Unknown] esomeprazole magnesium 20 mg capsule,delayed release (Nexium) 20 mg PO DAILY #30 caps 12/05/22 [Rx Last Taken Unknown] Allergy/AdvReac Type Severity Reaction Status Date / Time No Known Allergies Allergy Verified 12/05/22 13:58 Social History Smoking Status: Current every day smoker tobacco type: cigarettes alcohol intake: current ROS ROS ED ROS Narrative A complete review of systems was performed and is negative except as documented in the history of present illness. Some specific details below. Constitutional: No recent fevers or chills. No malaise. EYE: No visual complaints or pain. No color change. ENT: No difficulty swallowing. He does get intermittent burning but not having it now. CV: No chest pain or palpitations. Respiratory: Occasionally coughs but he is a smoker. No sputum production. He is not short of breath. No pain with breathing. GI: Please see history of present illness. : No frequency dysuria or hematuria. Musculoskeletal: No recent trauma. No pains. Skin: No rash. Nondiaphoretic. No color changes. Neuro: No weakness or numbness. Endocrine: No polyuria or polydipsia. EXAM Physical Exam Narrative Exam Narrative: CONSTITUTIONAL: Patient is nontoxic in appearance. The patient looks comfortable. HEENT: No notable trauma. Mucous membranes moist. No sinus tenderness. No indication of pain with swallowing. I see no masses. There is no petechiae. There is no thrush. Exam is very normal. EYES: No conjunctival injection. No proptosis. No limitation in range of motion. There is no icterus. CARDIOVASCULAR: Regular rate. Regular rhythm. No notable murmur. No JVD. RESPIRATORY: No respiratory distress. Breathing is unlabored. No wheezes. No rhonchi. No rales. No pain with a deep breath. GASTROINTESTINAL: Not distended. Bowel sounds are normal. No tenderness. No guarding. No rebound. No palpable mass. No bruit. Despite his history, his abdomen is benign at this time. GENITOURINARY: No tenderness over the bladder. No CVA tenderness. MUSCULOSKELETAL: Atraumatic. No peripheral edema. No cord. No tenderness along the deep venous system. No asymmetry. NEUROLOGICAL: Patient is alert and appropriate. No focal deficit noted. SKIN: No noted rashes. No diaphoresis. PSYCHIATRIC: Patient is calm. Patient has a very flat affect. Poor eye contact. Const Vital Signs: 12/05/22 13:58 Temperature 97.3 F L Temperature Source Temporal Pulse Rate 92 Respiratory Rate 18 Blood Pressure 156/111 H Blood Pressure Mean 126 Pulse Ox 98 Oxygen Delivery Method Room Air MDM MDM MDM Narrative Medical decision making narrative: My independent interpretation of the patient's PA and lateral chest x-ray shows no pneumothorax, infiltrate, enlarged mediastinum or cardiac silhouette. There is no mass that I note. Overall this is a normal-appearing x-ray. Final reading is pending. Patient CBC is normal including white count hemoglobin and platelets. Patient's electrolytes show no marked abnormalities. His minimal elevation of chloride at 108 which is nonspecific and not the source of his symptoms. Patient's liver function test are normal. I talk with the patient. His symptoms match gastritis and GERD. But his exam is benign. I do not see any indication for imaging at this time as he has no acute complaints and his exam is benign and his labs are normal. We will get him on proton pump inhibitor. I will give him numbers for primary care and gastroenterology for follow-up and discussed reasons that would prompt an acute return. Lab Data Attestation: I reviewed the patient's lab results. Labs: Laboratory Results - last 24 hr 12/05/22 14:33 WBC 5.7 RBC 4.24 L Hgb 13.2 Hct 40.4 MCV 95.3 H MCH 31.1 MCHC 32.7 RDW Std Deviation 43.9 RDW Coeff of Graciela 12.6 Plt Count 239 MPV 8.9 Immature Gran % (Auto) 0.400 Neut % (Auto) 49.6 Lymph % (Auto) 35.9 [place] % (Auto) 8.1 Eos % (Auto) 4.9 Baso % (Auto) 1.1 H Absolute Neuts (auto) 2.8 Absolute Lymphs (auto) 2.05 Nucleated RBC % 0 Sodium 141 Potassium 3.7 Chloride 108 H Carbon Dioxide 28.0 Anion Gap 5 BUN 16 Creatinine 0.94 Estim Creat Clear Calc 112.82 Est GFR (MDRD) Af Amer 119 Est GFR (MDRD) Non-Af 98 BUN/Creatinine Ratio 16.9 Glucose 104 Calcium 9.0 Total Bilirubin 0.50 AST 25 ALT 24 Alkaline Phosphatase 69 Total Protein 7.0 Albumin 3.8 Globulin 3.2 Albumin/Globulin Ratio 1.2 Discharge Plan Triage Chief Complaint: General Illness ED Provider: Barrett Shoemaker Dx/Rx/DC Orders Clinical Impression: Gastroesophageal reflux disease, Epigastric discomfort Instructions: ED GERD (Adult) Prescriptions: New esomeprazole magnesium [Nexium] 20 mg capsule,delayed release(DR/EC) 20 mg PO DAILY Qty: 30 0RF No Action omeprazole 20 mg capsule,delayed release(DR/EC) 20 mg PO DAILY Qty: 30 0RF Primary Care Provider: Care Physician,No Primary Referrals: Claus Saleem MD [Med Staff - Residential Electrician] - 1 Week Friend,Levar, DO [Med Staff - Active Staff] - As soon as possible (Call to get an appointment as possible.) Care Physician,No Primary [Primary Care Provider] - Disposition Disposition: Home, Self Care
[2022-12-05 14:41] LABS: Absolute Lymphocyte Count 2.05 X10^3/uL (0.83-4.51); Absolute Neutrophil Count 2.8 X10^3/uL (2.0-7.7); Basophil# 0.06 X10^3/uL; Basophil% 1.1 % (0-1); Eosinophil# 0.28 X10^3/uL; Eosinophils% 4.9 % (0-5); Hematocrit 40.4 % (40-54); Hemoglobin 13.2 g/dL (13.0-16.5); Lymphocyte # 2.05 X10^3/ul (0.83-4.51); Lymphocyte % 35.9 % (19-41); Mean Corp Hgb Conc 32.7 g/dL (32-36); Mean Corpuscular Hgb 31.1 pg (27.0-32.0); Mean Corpuscular Volume 95.3 fL (80-94); Mean Platelet Vol. 8.9 fl (6.2-12.0); Monocyte# 0.46 X10^3/uL; Monocyte% 8.1 % (0-10); NRBC Flagged by Analyzer 0 % (0-5); Neutrophil # 2.84 X10^3/uL (2.7-7.7); Neutrophil % 49.6 % (47-70); Platelet Count 239 K/mm3 (150-450); RBC Distribution Width CV 12.6 % (11.6-14.6); RBC Distribution Width SD 43.9 fl (35.1-43.9); Red Blood Count 4.24 M/mm3 (4.6-6.2); White Blood Count 5.7 K/mm3 (4.4-11.0)
--- NOTE | 2022-12-05 14:42 | RAD_ITS ---
HISTORY: cough. TECHNIQUE: XR Chest 2 Views. COMPARISON: 03/17/2020. FINDINGS: CARDIOMEDIASTINAL BORDERS: Cardiac silhouette within normal limits in size. Mediastinal contour unremarkable. LUNGS: Radiographically clear. PLEURA: No pleural effusion or pneumothorax seen. OSSEOUS STRUCTURES: Unremarkable. RAD/Chest PA and Lateral IMPRESSION: No acute cardiopulmonary process identified. Electronically Signed: Flori Vera MD at 15:19 EDT ,
[2022-12-05 14:57] LABS: ALB/GLOB Ratio 1.2 RATIO (0.9-2.4); AST(SGOT) 25 U/L (15-37); Alanine Aminotransfer ALT/SGPT 24 U/L (16-61); Albumin, Serum 3.8 g/dL (3.2-5.0); Alkaline Phosphatase 69 U/L (45-117); Anion Gap 5 (5-15); BUN 16 mg/dL (7-18); BUN/Creat Ratio 16.9 RATIO (10-20); Chloride 108 mmol/L (98-107); Creatinine, Serum 0.94 mg/dL (0.70-1.30); EST Glomerular Filtration Rate 98 mL/min (>60); Est Glom Filt Rate - Afr Amer 119 mL/min (>60); Estimated Creatinine Clearance 112.82 ml/min; Globulin 3.2 g/dL (2.2-4.2); Glucose 104 mg/dL (74-106); Potassium 3.7 mmol/L (3.5-5.1); Sodium Level 141 mmol/L (136-145)
== END 2022-12-05 15:17 | disposition home or self-care (01) ==
PROVIDERS: Emergency Provider Emergency Medicine; Visit Provider Emergency Medicine
DX: K21.9 Gastro-esophageal reflux disease without esophagitis (principal); F17.210 Nicotine dependence, cigarettes, uncomplicated; Z79.899 Other long term (current) drug therapy
CPT/HCPCS: 36415; 71046; 80053; 85025; 99282

== ENCOUNTER 2022-12-14 08:18 | Emergency (ER) | payer MEDICAID, SELFPAY ==
[2022-12-14 08:19] VITALS: BP 126/78; PULSE 64; RESP 14; TEMP 36.4; O2SAT 99; BMI 23.7
--- NOTE | 2022-12-14 08:35 | ED.VIS.LOWEX ---
HPI History of Present Illness HPI Narrative: Right lower leg noticed today. Itching. Chief Complaint: Wound Informant: patient and spouse/S.O. Occured/Mechanism Mechanism/Context: No injury and No blunt trauma Onset/Context/Timing Onset: Today Context: Gradual Onset Timing: Continuous Associated Symptoms Associated Symptoms: Negative for Parasthesia, Weakness or Loss of Funtion Narrative Narrative: 32-year-old male history of anxiety complaining of right lower leg rash. Concerned it may have been a spider bite. Denies any trauma. No recent illness. No fever. No prior history. Prior similar symptoms: No Recent Illness/Hospitalization: Yes [facility] Medical History Anxiety Depression Hx of drug overdose Home Medications omeprazole 20 mg capsule,delayed release 20 mg PO DAILY #30 caps 09/26/21 [Rx Last Taken Unknown] esomeprazole magnesium 20 mg capsule,delayed release (Nexium) 20 mg PO DAILY #30 caps 12/05/22 [Rx Last Taken Unknown] Allergy/AdvReac Type Severity Reaction Status Date / Time No Known Allergies Allergy Verified 12/14/22 08:18 Social History Smoking Status: Current every day smoker tobacco type: cigarettes alcohol intake: current ROS ROS ED ROS Narrative Rash right lower leg. Review of Systems ROS Unobtainable: Denies due to encephalopathy Constitutional Constitutional ED: Denies chills or fever(s) Eyes Eyes: Denies blurry vision ENT ENT ED: Denies ear pain or rhinorrhea Cardiovascular Cardiovascular: Denies chest pain Respiratory/Chest Respiratory/Chest: Denies cough or dyspnea Gastrointestinal Gastrointestinal: Denies abdominal pain Genitourinary Genitourinary ED: Denies dysuria Musculoskeletal Musculoskeletal: Denies arthralgias Integumentary Denies abscess Psychiatric Psychiatric: Reports anxiety Endocrine Endocrinology: Denies polydipsia Hematologic/Lymphatic Hematologic/Lymphatic: Denies easy bleeding Allergic/Immunologic Allergic/Immunologic ED: Denies mouth swelling EXAM Physical Exam Narrative Exam Narrative: 30-year-old male no acute distress. Vital signs stable afebrile. H EENT exam unremarkable. Neck nontender no lymphadenopathy. Lungs clear to auscultation bilaterally. Heart regular rhythm no murmur. Chest wall nontender. Abdomen soft nontender. Back unremarkable. No axillary or inguinal lymphadenopathy. Moves all 4 extremities. Neurovascular intact. His right lower leg has areas of small wounds. Looks like it is excoriated from scratching. There is no secondary cellulitis. No pus. No edema. Foot is neurovascular intact with normal touch sensation. Normal DP pulse. Normal dorsi plantarflexion. There is no lymphangitic streaking. There is no inguinal lymphadenopathy. There is full range of motion of both legs. Left leg is unremarkable. Const Vital Signs: 12/14/22 08:19 Temperature 97.6 F L Temperature Source Temporal Pulse Rate 64 Respiratory Rate 14 Blood Pressure 126/78 H Blood Pressure Mean 94 Pulse Ox 99 Oxygen Delivery Method Room Air Positive well nourished and well developed; Negative for obese, cachectic, contractures or unkempt General Appearance ED: well developed; Negative for unkempt, cachectic or contractures Nutritional Appearance: Negative for cachectic or obese HEENT Reports moist mucous membranes normocephalic and atraumatic; Negative for trauma or tenderness Eyes PERRL General Eye ED: Negative for other Neck full ROM and supple Thyroid: Negative for tender Lymph Lymphatic: Negative for other Chest Wall inspection of chest normal and palpation of chest normal Chest: Negative for other Resp normal respiratory effort, no retractions and clear to auscultation bilaterally Effort and Inspection: Negative for pain with movement Auscultation: Negative for rales, rhonchi or wheezes Cardio regular rate, regular rhythm, S1 normal heart sound, S2 normal heart sound and no murmurs Rate: Negative for bradycardia or tachycardic Rhythm: Negative for abnormal rhythm Bruits: Negative for other GI non-tender, non-distended and no masses Inspection: Negative for abdominal distention Auscultation: normoactive bowel sounds Palpation: soft; Negative for tender or guarding Bladder / Kidney Exam: No other Back/Spine no CVA tenderness General Back: Negative for CVA tenderness Cervical Spine: Negative for cervical spine tenderness Thoracic Spine / Upper Back: Negative for thoracic spinal tenderness Lumbar Spine / Lower Back: Negative for lumbar spinal tenderness Extremity normal to inspection and full ROM Extremity Narrative: Except right lower leg. There is areas of excoriated skin from scratching. There is no secondary cellulitis. No lymphangitic streaking. No inguinal lymphadenopathy. Right lower leg is neurovascular intact. With DP pulse. Normal touch sensation. Normal dorsi plantarflexion. Nontender to the touch. This could be allergic reaction. General Extremety ED: Negative for cyanosis, edema or weight-bearing difficulty General Extremity: Negative for cyanosis, edema or weight-bearing difficulty Neuro oriented x3, CN's II-XII intact bilaterally, moves all extremities and no sensory deficits noted Sensorium / Orientation: alert, oriented to person, oriented to place and oriented to time; Negative for orientation impaired, confused, lethargic or stuporous Motor Exam: strength 5/5 throughout Psych mental status grossly normal Appearance: Negative for unkempt Speech: No other Mood & Affect: Negative for anxious Skin no wounds Skin Narrative: Rash right lower leg. Lesions: no lesions Rashes: No no rashes MDM MDM MDM Narrative Medical decision making narrative: 32-year-old male rash right lower leg which may be secondary to an allergic reaction to an insect bite or sting. There is no secondary infection. Benadryl as needed. Cool compresses. Return if any signs of infection which she and I discussed. Discharge Plan Triage Chief Complaint: Wound ED Provider: Maurice Lindquist Dx/Rx/DC Orders Clinical Impression: Allergic reaction Instructions: First Aid: Allergic Reactions Prescriptions: No Action omeprazole 20 mg capsule,delayed release(DR/EC) 20 mg PO DAILY Qty: 30 0RF esomeprazole magnesium [Nexium] 20 mg capsule,delayed release(DR/EC) 20 mg PO DAILY Qty: 30 0RF Primary Care Provider: Care Physician,No Primary Referrals: Stephen Haynes MD [Non-Staff] - 1 Week if not improving Care Physician,No Primary [Primary Care Provider] - Activity Restrictions/Additional Instructions: Most likely this is a local allergic reaction to insect bite or sting. Cool compresses to the area. Motrin to decrease pain and inflammation. Benadryl to counteract allergic reaction. Return if fever, significantly looking worse, red skin or feeling a lot worse. Disposition Disposition: Home, Self Care
== END 2022-12-14 08:55 | disposition home or self-care (01) ==
LOC: ED 08:45
PROVIDERS: Emergency Provider Emergency Medicine; Visit Provider Emergency Medicine
DX: T78.40XA Allergy, unspecified, initial encounter (principal); R21 Rash and other nonspecific skin eruption; F17.210 Nicotine dependence, cigarettes, uncomplicated; F41.9 Anxiety disorder, unspecified; F32.A Depression, unspecified; Z79.899 Other long term (current) drug therapy
CPT/HCPCS: 99282

== ENCOUNTER 2023-03-08 13:28 | Emergency (ER) | payer MEDICAID, SELFPAY ==
[2023-03-08 13:29] VITALS: BP 146/108; PULSE 85; RESP 18; TEMP 36.2; O2SAT 100; BMI 24.6
--- NOTE | 2023-03-08 13:43 | CT_ITS ---
STUDY: CT ABDOMEN AND PELVIS WITH CONTRAST REASON FOR EXAM: Male, 32 years old. Diffuse abd pain RADIATION DOSAGE (If Supplied By Facility): CTDIvol = ( 7.75 ) mGy, DLP = ( 312.71 ) mGycm TECHNIQUE: Transaxial images were obtained from the dome of the diaphragm to the symphysis pubis without oral contrast. IV 100mL Isovue-370 was administered. Sagittal and coronal images were reconstructed. Individualized dose optimization techniques were used for this CT. COMPARISON: Comparison is made with prior study dated September 26, 2021. FINDINGS: Minimal dependent bibasilar atelectasis. The visualized portions of the heart are within normal limits. Normal liver. The gallbladder is contracted. Normal spleen. Normal pancreas. Normal bilateral adrenal glands. 2 mm nonobstructive calculus in the anterior lower pole calyx of the right kidney. Normal left kidney. Residual food particles and fluid filled stomach. Small bowel loops are on the left side of the abdomen. This is unchanged. This is suggestive of a developmental abnormality. Moderate amount of fecal material is seen in the colon. The appendix is visualized and appears normal. Normal abdominal aorta. Normal inferior vena cava. Normal retroperitoneum. Mild degree of diffuse bladder wall thickening. Normal abdominal wall. Normal osseous structures. CT/Abdomen/Pelvis W IV Cont ONLY IMPRESSION: Diffuse thickening of the urinary bladder wall. Small bowel loops are predominantly positioned in the left side of the abdomen most likely a developmental variant. Electronically Signed: Rahat Van MD at 14:50 EST ,
--- NOTE | 2023-03-08 13:44 | EDS_ITS ---
HPI HPI - GI History of Present Illness Chief Complaint: Abd Pain Detail of Chief Complaint: Diffuse abdominal pain worse today. Informant: patient Abdominal Pain/Flank Pain Onset: Month(s) Context: Gradual Onset Timing: Intermittent Location: Diffuse Current Severity: Mild Maximum Severity: Moderate Worsened by: Nothing Relieved by: Nothing Nausea/Vomiting/Emesis GI Symptom: Positive for Nausea; Negative for Vomiting Diarrhea/Melena/Hematochezia GI Symptom: Positive for Diarrhea and - (Constipation) Onset: Days Stool Quality: Positive for Loose Severity: Mild Associated Symptoms Associated Symptoms: Negative for Dysuria, Frequency, Hematuria or Urgency Narrative Narrative: 32-year-old male past medical history of drug use but has quit. Says he drinks alcohol and was daily. He smokes. Has no other significant past medical history. No prior abdominal surgery. States that he has had abdominal discomfort for months. It is worse today. Associated nausea. No vomiting. He has alternating loose stools and constipation. Denies any dysuria. No fever. No dysuria. No weight loss. Prior similar symptoms: Yes Recent Illness/Hospitalization: No PFSH [facility] Medical History Anxiety Depression Hx of drug overdose Home Medications omeprazole 20 mg capsule,delayed release 20 mg PO DAILY #30 caps 09/26/21 [Rx Last Taken Unknown] esomeprazole magnesium 20 mg capsule,delayed release (Nexium) 20 mg PO DAILY #30 caps 12/05/22 [Rx Last Taken Unknown] Allergy/AdvReac Type Severity Reaction Status Date / Time No Known Allergies Allergy Verified 03/08/23 13:28 Social History (Updated 03/08/23 @ 13:46 by Bella Barker) household members: significant other Smoking Status: Current every day smoker tobacco type: cigarettes alcohol intake: current ROS ROS ED ROS Narrative Abdominal pain. Nausea. Alternating diarrhea and constipation. Review of Systems ROS Unobtainable: Denies due to encephalopathy Constitutional Constitutional ED: Denies chills or fever(s) ENT ENT ED: Denies ear pain Cardiovascular Cardiovascular: Denies chest pain Respiratory/Chest Respiratory/Chest: Denies cough or dyspnea Gastrointestinal Gastrointestinal: Reports abdominal pain, constipation, diarrhea and nausea; Denies melena or vomiting Genitourinary Genitourinary ED: Denies dysuria or hematuria Musculoskeletal Musculoskeletal: Denies arthralgias or back pain Integumentary Denies abscess Neurologic Neurologic: Denies headache(s) Psychiatric Psychiatric: Denies anxiety Endocrine Endocrinology: Denies polydipsia Hematologic/Lymphatic Hematologic/Lymphatic: Denies easy bleeding Allergic/Immunologic Allergic/Immunologic ED: Denies mouth swelling or tongue swelling EXAM Physical Exam Narrative Exam Narrative: Well-appearing 32-year-old male. Vital signs stable afebrile. HEENT exam unremarkable. Neck nontender. Lungs clear to auscultation bilaterally. Heart regular rhythm rate about 85 no murmur. Abdomen soft nondistended normal bowel sounds no peritoneal signs. Tender in both upper quadrants. No hernia or mass. No obstruction. No right lower quadrant tenderness. No Dunn sign. Moving all 4 extremities. Nontender no edema. Back nontender. Neurologically is awake and alert with no focal motor deficits. Const Vital Signs: 03/08/23 13:29 Temperature 97.2 F L Temperature Source Temporal Pulse Rate 85 Respiratory Rate 18 Blood Pressure 146/108 H Blood Pressure Mean 120 Pulse Ox 100 Oxygen Delivery Method Room Air Positive well nourished and well developed; Negative for obese, cachectic, contractures or unkempt General Appearance ED: well developed and NAD; Negative for unkempt, cachectic, contractures or pallor Nutritional Appearance: Negative for cachectic or obese HEENT Reports moist mucous membranes normocephalic and atraumatic; Negative for trauma or tenderness Eyes PERRL and EOMs intact bilaterally General Eye ED: Negative for pale conjunctiva or scleral icterus Neck no lymphadenopathy, supple and no JVD General: Negative for tenderness Carotids: Negative for other Lymph Lymphatic: Negative for other Resp normal respiratory effort and clear to auscultation bilaterally Effort and Inspection: Negative for respiratory distress Auscultation: Negative for rales, rhonchi or wheezes Cardio regular rate, regular rhythm, S1 normal heart sound, S2 normal heart sound and no murmurs Rate: Negative for bradycardia or tachycardic Rhythm: Negative for abnormal rhythm GI non-distended and no masses; Negative for non-tender Inspection: Negative for abdominal distention Auscultation: normoactive bowel sounds Palpation: soft and tender; Negative for guarding, rigid, hepatomegaly, splenomegaly, hernia, mass, pulsatile mass or rebound tenderness present Back/Spine no CVA tenderness General Back: Negative for CVA tenderness Cervical Spine: Negative for cervical spine tenderness Thoracic Spine / Upper Back: Negative for thoracic spinal tenderness Lumbar Spine / Lower Back: Negative for lumbar spinal tenderness Coccyx: Negative for other Extremity full ROM General Extremety ED: Negative for edema or tenderness General Extremity: Negative for edema Neuro CN's II-XII intact bilaterally and moves all extremities Sensorium / Orientation: alert, oriented to person, oriented to place and oriented to time; Negative for orientation impaired, confused, lethargic or stuporous Motor Exam: strength 5/5 throughout Psych mental status grossly normal and thought process normal Appearance: Negative for unkempt Attitude: No agitated Mood & Affect: Negative for depressed, anxious or tearful Skin no wounds General Skin Exam: Negative for jaundice or pallor Lesions: no lesions Rashes: no rashes Trauma: Negative for abrasion Nails: Negative for discolored MDM MDM MDM Narrative Medical decision making narrative: 32-year-old male with a lengthy history of abdominal pain worse today. CAT scan labs pending. Toradol for pain and Zofran for nausea. His pain appears to be mainly in the upper quadrants. It does not appear to be a Yoli cystitis. Could be gastritis. Pancreatitis possibly. Clinically not appendicitis. No signs of bowel obstruction. Repeat exam patient is doing well at 3:27 PM. Abdomen is benign. We went over his normal lab work and CAT scan consistent with constipation. He will be discharged home. Fluids, fiber and MiraLAX. History & Record Review Discussion w/independent historian: Patient Additional record(s) reviewed:: Prior inpatient record, Prior outpatient record, Prior ED visit and Prior labs Lab Data Attestation: I reviewed the patient's lab results. Lab results narrative: CBC has a white count 8. H&H of 14.9 and 44. Platelets of 273. Electrolytes show a gap of 3 BUN and creatinine of 21.1. Glucose 127. Liver enzymes normal. Lipase 41 and normal. Urinalysis normal. Labs: Laboratory Results - last 24 hr 03/08/23 13:50 WBC 8.0 RBC 4.82 Hgb 14.9 Hct 44.3 MCV 91.9 MCH 30.9 MCHC 33.6 RDW Std Deviation 42.0 RDW Coeff of Graciela 12.4 Plt Count 273 MPV 8.6 Immature Gran % (Auto) 0.300 Neut % (Auto) 55.1 Lymph % (Auto) 31.5 Harlan % (Auto) 7.5 Eos % (Auto) 4.5 Baso % (Auto) 1.1 H Absolute Neuts (auto) 4.4 Absolute Lymphs (auto) 2.51 Nucleated RBC % 0 Sodium 138 Potassium 3.9 Chloride 104 Carbon Dioxide 31.0 Anion Gap 3 L BUN 20 H Creatinine 1.16 Estim Creat Clear Calc 91.42 Est GFR (MDRD) Af Amer 93 Est GFR (MDRD) Non-Af 77 BUN/Creatinine Ratio 17.2 Glucose 127 H Calcium 10.1 Total Bilirubin 0.50 AST 26 ALT 27 Alkaline Phosphatase 71 Total Protein 7.4 Albumin 3.9 Globulin 3.5 Albumin/Globulin Ratio 1.1 Lipase 41 Urine Color Yellow Urine Clarity Cloudy Urine pH 7.0 Ur Specific [place] 1.010 Urine Protein Negative Urine Glucose (UA) Normal Urine Ketones Negative Urine Occult Blood 10 H Urine Nitrite Negative Urine Bilirubin Negative Urine Urobilinogen Normal Ur Leukocyte Esterase Negative Urine RBC 0 SEEN Urine WBC 0 SEEN Ur Squamous Epith Cells 0 SEEN Amorphous Sediment 2+ Urine Bacteria 0 SEEN Urine Mucus 0 SEEN Radiography Diagnostic Testing: Clinical Impression(s) from Imaging Studies Abdomen/Pelvis CT 03/08/23 13:43 IMPRESSION: Diffuse thickening of the urinary bladder wall. Small bowel loops are predominantly positioned in the left side of the abdomen most likely a developmental variant. Electronically Signed: Rahat Van MD at 14:50 EST Reading Location ID and State: [address] [place] [address] , Service support , CT abdomen pelvis was basically unremarkable other than a developmental variant and constipation. Discharge Plan Triage Chief Complaint: Abd Pain ED Provider: Maurice Lindquist Dx/Rx/DC Orders Clinical Impression: Acute constipation, Abdominal pain Instructions: ED Constipation (Adult) Prescriptions: No Action omeprazole 20 mg capsule,delayed release(DR/EC) 20 mg PO DAILY Qty: 30 0RF esomeprazole magnesium [Nexium] 20 mg capsule,delayed release(DR/EC) 20 mg PO DAILY Qty: 30 0RF Primary Care Provider: Care Physician,No Primary Referrals: Stephen Haynes MD [Non-Staff] - As Needed Care Physician,No Primary [Primary Care Provider] - Activity Restrictions/Additional Instructions: Your pain is secondary to constipation. Plenty of fluids. Fruits, vegetables and fiber. MiraLAX. When she started having bowel movement she should start feeling better. Your labs were unremarkable and normal. Disposition Disposition: Home, Self Care
[2023-03-08] MEDS: Ketorolac 30 MG/ML Syringe IV (13:56)
[2023-03-08] MEDS: Ondansetron 4 MG/2 ML Vial IV (13:56)
[2023-03-08 14:02] LABS: Bacteria 0 SEEN /hpf (None Seen); Mucous, Urine 0 SEEN /hpf (<or=2+); Red Blood Cells-Urine 0 SEEN /hpf (0-5); Squamous Epithelial Cells - UA 0 SEEN /hpf (0-5); White Blood Cells 0 SEEN /hpf (0-5)
[2023-03-08 14:04] LABS: Absolute Lymphocyte Count 2.51 X10^3/uL (0.83-4.51); Absolute Neutrophil Count 4.4 X10^3/uL (2.0-7.7); Basophil# 0.09 X10^3/uL; Basophil% 1.1 % (0-1); Eosinophil# 0.36 X10^3/uL; Eosinophils% 4.5 % (0-5); Hematocrit 44.3 % (40-54); Hemoglobin 14.9 g/dL (13.0-16.5); Lymphocyte # 2.51 X10^3/ul (0.83-4.51); Lymphocyte % 31.5 % (19-41); Mean Corp Hgb Conc 33.6 g/dL (32-36); Mean Corpuscular Hgb 30.9 pg (27.0-32.0); Mean Corpuscular Volume 91.9 fL (80-94); Mean Platelet Vol. 8.6 fl (6.2-12.0); Monocyte% 7.5 % (0-10); NRBC Flagged by Analyzer 0 % (0-5); Neutrophil # 4.39 X10^3/uL (2.7-7.7); Neutrophil % 55.1 % (47-70); Platelet Count 273 K/mm3 (150-450); RBC Distribution Width CV 12.4 % (11.6-14.6); Red Blood Count 4.82 M/mm3 (4.6-6.2)
[2023-03-08 14:05] LABS: Color, Urine Yellow (Yellow); Glucose, Dipstick Normal (Normal); Ketone-Dipstick Negative (Negative); Leukocyte Esterase-Dipstick Negative /ul (Negative); Nitrite-Dipstick Negative (Negative); Occult Blood-Urine 10 /ul (Negative); Protein-Dipstick Negative (Negative); Urine Bilirubin Dipstick Negative (Negative); Urine Clarity Cloudy (Clear); Urine Urobilinogen Normal (Normal)
[2023-03-08 14:11] LABS: Amorphous Sediment 2+
[2023-03-08 14:21] LABS: ALB/GLOB Ratio 1.1 RATIO (0.9-2.4); AST(SGOT) 26 U/L (15-37); Alanine Aminotransfer ALT/SGPT 27 U/L (16-61); Albumin, Serum 3.9 g/dL (3.2-5.0); Alkaline Phosphatase 71 U/L (45-117); Anion Gap 3 (5-15); BUN 20 mg/dL (7-18); BUN/Creat Ratio 17.2 RATIO (10-20); Calcium,Total 10.1 mg/dL (8.5-10.1); Chloride 104 mmol/L (98-107); Creatinine, Serum 1.16 mg/dL (0.70-1.30); EST Glomerular Filtration Rate 77 mL/min (>60); Est Glom Filt Rate - Afr Amer 93 mL/min (>60); Estimated Creatinine Clearance 91.42 ml/min; Globulin 3.5 g/dL (2.2-4.2); Glucose 127 mg/dL (74-106); Lipase 41 U/L (13-75); Potassium 3.9 mmol/L (3.5-5.1); Protein, Total 7.4 g/dL (6.4-8.2); Sodium Level 138 mmol/L (136-145)
[2023-03-08 15:54] VITALS: PULSE 64; RESP 12
== END 2023-03-08 15:56 | disposition home or self-care (01) ==
PROVIDERS: Emergency Provider Emergency Medicine; Visit Provider Emergency Medicine
DX: K59.00 Constipation, unspecified (principal); R19.7 Diarrhea, unspecified; F17.210 Nicotine dependence, cigarettes, uncomplicated
CPT/HCPCS: 74177; 80053; 81001; 83690; 85025; 96374; 96375; 99283; Q9967; A4216; J2405